=== PATIENT | female | born 2000 | race Two or more races ===

== ENCOUNTER → 2023-06-08 | Outpatient (REF) | payer BC | LOC: M SFHCWAGY 17:43 | PROVIDERS: ATTEND Nurse Practitioner Family | DX: Z12.4 Encounter for screening for malignant neoplasm of cervix (principal) ==

== ENCOUNTER → 2024-06-15 | Outpatient (REF) | payer BC ==
[~2024-06-15] MED LIST: SERT50TA29 PO
[2024-06-18 12:32] LABS: HPV APTIMA Not Detected (Not Detected)
== END ==
LOC: M SFHCWAGY 13:00
PROVIDERS: ATTEND Nurse Practitioner Family
DX: Z12.4 Encounter for screening for malignant neoplasm of cervix (principal)
CPT/HCPCS: 87624; G0123